=== PATIENT | male | born 1960 | race Caucasian/White ===

== ENCOUNTER 2017-09-24 13:11 | Emergency (ER) | payer OTHER ==
[2017-09-24 13:25] VITALS: BP 148/84
[2017-09-24] MEDS ORDERED: KETOROLAC TROMETHAMINE 60 MG/2 ML SDV IM ONE (14:29)
[2017-09-24] MEDS ORDERED: METHOCARBAMOL 500 MG TABLET PO ONE (14:29)
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
== END 2017-09-24 16:00 | disposition home or self-care (01) ==
LOC: ER 13:11
DX: S23.3XXA Sprain of ligaments of thoracic spine, initial encounter (principal); S33.5XXA Sprain of ligaments of lumbar spine, initial encounter; S40.811A Abrasion of right upper arm, initial encounter; V49.40XA Driver injured in collision with unspecified motor vehicles in traffic accident, initial encounter; Z91.041 Radiographic dye allergy status; F17.200 Nicotine dependence, unspecified, uncomplicated
CPT/HCPCS: 99283; 96372; 72110; 72070; J1885

== ENCOUNTER 2019-03-22 10:28 | Emergency (ER) | payer SELFPAY ==
[2019-03-22] MEDS ORDERED: NORMAL SALINE 1000 ML 1,000 ML IV ONE ×2 (10:50→13:45)
[2019-03-22] MEDS ORDERED: ONDANSETRON HCL INJ/PF 4 MG/2 ML SDV IV ONE ×2 (10:50→13:45)
--- NOTE | 2019-03-22 10:50 | ER Document Report ---
ED Medical Screen (RME) - General Chief Complaint: Abdominal Pain Stated Complaint: ABDOMINAL PAIN Time Seen by Provider: 03/22/19 10:46 Mode of Arrival: Wheelchair Information source: Patient Notes: 58-year-old male presented to ED for complaint of upper abdominal pain around the middle of his upper abdomen. states he has had them for a couple months but is much worse today. He has been nauseated but no vomiting with no constipation. He denies any fevers. He states he is on Suboxone. He states he smokes 1 cigarette every day or [address] or street drugs. He is alert oriented respirations regular nonlabored. Abdomen soft bowel sounds hypoactive very tender to the upper abdomen to palpation. I have greeted and performed a rapid initial assessment of this patient. A comprehensive ED assessment and evaluation of the patient, analysis of test results and completion of medical decision making process will be conducted by an additional ED providers. TRAVEL OUTSIDE OF THE [place] 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
[2019-03-22 11:32] LABS: ABSOLUTE EOSINOPHILS # (AUTO) 0.2 10^3/uL (0.0-0.6); ABSOLUTE LYMPHOCYTES (AUTO) 0.7 10^3/uL (0.5-4.7); ABSOLUTE MONOCYTES (AUTO) 0.6 10^3/uL (0.1-1.4); ABSOLUTE NEUT (AUTO) 6.5 10^3/uL (1.7-8.2); BASOPHILS % (AUTO) 0.5 % (0-2); EOSINOPHILS % (AUTO) 2.1 % (0-6); HEMATOCRIT 38.1 % (37.9-51.0); HEMOGLOBIN 13.3 g/dL (13.5-17.0); LYMPHOCYTES % (AUTO) 8.5 % (13-45); MEAN CORPUSCULAR HEMOGLOBIN 30.9 pg (27.0-33.4); MEAN CORPUSCULAR VOLUME 88 fl (80-97); MONOCYTES % (AUTO) 7.7 % (3-13); PLATELET COUNT 338 10^3/uL (150-450); RED BLOOD COUNT 4.31 10^6/uL (4.35-5.55); RED CELL DISTRIBUTION WIDTH 14.1 % (11.5-14.0); SEGMENTED NEUTROPHILS % (AUTO) 81.2 % (42-78); TOTAL CELLS COUNTED % (AUTO) 100 %
[2019-03-22 11:50] LABS: ALBUMIN 4.1 g/dL (3.5-5.0); ALKALINE PHOSPHATASE 642 U/L (38-126); ANION GAP 9 (5-19); ASPARTATE AMINO TRANSFERASE 128 U/L (17-59); BILIRUBIN,DIRECT 1.3 mg/dL (0.0-0.4); BILIRUBIN,TOTAL 2.4 mg/dL (0.2-1.3); BLOOD UREA NITROGEN 9 mg/dL (7-20); CALCIUM 9.5 mg/dL (8.4-10.2); CARBON DIOXIDE 27 mmol/L (22-30); CHLORIDE 100 mmol/L (98-107); GLUCOSE 114 mg/dL (75-110); POTASSIUM 3.8 mmol/L (3.6-5.0); TOTAL PROTEIN 7.3 g/dL (6.3-8.2)
[2019-03-22 12:07] LABS: APPEARANCE,URINE CLEAR; BILIRUBIN,URINE NEGATIVE (NEGATIVE); COLOR,URINE YELLOW; GLUCOSE, URINE NEGATIVE (NEGATIVE); KETONES,URINE TRACE mg/dL (NEGATIVE); PROTEIN,URINE NEGATIVE (NEGATIVE); URINE SPECIFIC GRAVITY 1.014
--- NOTE | 2019-03-22 13:03 | ER Document Report ---
ED General - General Chief Complaint: Abdominal Pain Stated Complaint: ABDOMINAL PAIN Time Seen by Provider: 03/22/19 10:46 Mode of Arrival: Wheelchair Notes: 58-year-old male with abdominal pain on Suboxone presents with upper abdominal pain burning "like the acid uncontrollable I need to get rid of it" intermittent for about a month worse today with nausea. Feels dehydrated. Normal stooling every day no constipation or blood, history of cholecystectomy. TRAVEL OUTSIDE OF THE [place] IN LAST 30 DAYS: No - Related Data Allergies/Adverse Reactions: Iodinated Contrast Media [IV Dye, Iodine Containing] Allergy (Intermediate, Verified 03/22/19 10:48) Hives Past Medical History - General Information source: Patient - Social History Smoking Status: Current Every Day Smoker Drug Abuse: Marijuana Family History: Reviewed & Not Pertinent Patient has suicidal ideation: No Patient has homicidal ideation: No - Past Medical History Cardiac Medical History: Denies: Hx Coronary Artery Disease, Hx Hypercholesterolemia, Hx Hypertension Endocrine Medical History: Denies: Hx Diabetes Mellitus Type 2 Renal/ Medical History: Denies: Hx Peritoneal Dialysis Musculoskeletal Medical History: Reports Hx Musculoskeletal Trauma - deg enerative spinal disease resulting from trauma in 1991, DDD, bulging disc L4-5, L5-S1 Skin Medical History: Denies Hx MRSA Traumatic Medical History: Reports: Hx Spine Fracture Infectious Medical History: Denies: Hx MRSA Past Surgical History: Reports: Hx Cholecystectomy, Hx Herniorrhaphy - Immunizations Hx Diphtheria, Pertussis, Tetanus Vaccination: Yes Hx Pneumococcal Vaccination: 02/24/00 Review of Systems - Review of Systems Notes: REVIEW OF SYSTEMS GEN: Denies fever, chills, weight loss ENT: Denies sore throat, nasal discharge, ear pain EYES: Denies blurry vision, eye pain, discharge CV: Denies chest pain, palpitations, edema RESP: Denies cough, shortness of breath, wheezing GI: HPI MSK: Denies joint pain/swelling, edema, SKIN: Denies rash, skin lesions LYMPH: Denies swollen glands/lymph nodes NEURO: Denies headache, focal weakness or numbness, dizziness PSYCH: Denies depression, suicidal or homicidal ideation PHYSICAL EXAMINATION General: Moving around the gurney not sitting still Head: Atraumatic, normocephalic ENT: Mouth normal, oropharynx moist, no exudates or tonsillar enlargement Eyes: Conjunctiva normal, pupils equal, lids normal Neck: No JVD, supple, no guarding CVS: Normal rate, regular rhythm, no murmurs Resp: No resp distress, equal and normal breath sounds bilaterally GI: Upper abdominal tenderness epigastric most tender without guarding or distention Ext: No deformities, no edema, normal range of motion in upper and lower ext Back: No CVA or midline TTP Skin: No rash, warm Lymphatic: No lymphadeopathy noted Neuro: Awake, alert. Face symmetric. GCS 15. Physical Exam - Vital signs Vitals: Temp Pulse Resp BP Pulse Ox 97.8 F 72 18 131/72 H 100 03/22/19 10:48 03/22/19 10:48 03/22/19 10:48 03/22/19 10:48 03/22/19 10:48 Course - Re-evaluation Re-evalutation: 03/22/19 14:27 Acute on subacute abdominal pain with significant tenderness, normal vital signs. History of opioid dependence and has some upper abdominal tenderness I am going to order Noncon CT given he is a severe contrast allergy, and check labs Labs are significant for mild elevation in white count and market elevation in alk phos CT shows hypodensity of the pancreatic headI am concerned for a pancreatic head mass biliary tumor or other source of biliary obstruction so I ordered an ultras ound This shows severe biliary dilatation. I discussed him with Dr. Guerra and Dr. Rich, who states that they cannot do ERCP unable to be transferred. Discussed with hospitalist at [facility] who accepted the patient. 03/22/19 21:28 No additional pain medicine given, no signs of sepsis or cholangitis while in our ED. - Vital Signs Vital signs: Temp Pulse Resp BP Pulse Ox 97.8 F 72 18 131/72 H 100 03/22/19 10:48 03/22/19 10:48 03/22/19 10:48 03/22/19 10:48 03/22/19 10:48 - Laboratory Result Diagrams: 03/22/19 11:15 03/22/19 11:15 Laboratory results interpreted by me: 03/22/19 03/22/19 03/22/19 11:15 11:15 11:30 RBC 4.31 L Hgb 13.3 L RDW 14.1 H Lymph % (Auto) 8.5 L Seg Neutrophils % 81.2 H Sodium 136.2 L Glucose 114 H Total Bilirubin 2.4 H Direct Bilirubin 1.3 H AST 128 H Alkaline Phosphatase 642 H Urine Ketones TRACE H Urine Urobilinogen 4.0 H Urine Ascorbic Acid 20 H - Diagnostic Test Radiology reviewed: Image reviewed, Reports reviewed Discharge - Discharge Clinical Impression: Elevated alkaline phosphatase level, Upper abdominal pain Condition: Good Disposition: [facility] Admitting Provider: Deandre (Hospitalist) Unit Admitted: Medical Floor
--- NOTE | 2019-03-22 14:19 | RADIOLOGY REPORT (SQ) ---
EXAM DESCRIPTION: CT ABD/PELVIS NO ORAL OR IV COMPLETED DATE/TIME: 03/22/2019 2:02 pm REASON FOR STUDY: upper abd pain COMPARISON: None. TECHNIQUE: CT scan of the abdomen and pelvis performed without intravenous or oral contrast. Images reviewed with lung, soft tissue, and bone windows. Reconstructed coronal and sagittal MPR images revi ewed. All images stored on PACS. All CT scanners at this facility use dose modulation, iterative reconstruction, and/or weight based d osing when appropriate to reduce radiation dose to as low as reasonably achievable (ALARA). [facility]: Dose Right [facility]: CareDose [facility]: Dose Right [facility]: Teradose 4D [facility]: Smart [employer] RADIATION DOSE: CT Rad equipment meets quality standard of care and radiation dose reduction techniq ues were employed. CTDIvol: 5.5 mGy. DLP: 272 mGy-cm.mGy. LIMITATIONS: None. FINDINGS: LOWER CHEST: No significant findings. No nodules or infiltrates. NON-CONTRASTED LIVER, SPLEEN, ADRENALS: Evaluation limited by lack of IV contrast. No identified sign ificant masses. PANCREAS: Low-density lesion in the expected location of the pancreatic head measuring about 3 cm ad ge 23. This could be normal fluid within gastroduodenal junction or pseudocyst. Difficult to differ entiate without oral and intravenous contrast. GALLBLADDER: Surgically absent. RIGHT KIDNEY AND URETER: No suspicious masses. Assessment limited by lack of IV contrast. No signif icant calcifications. No hydronephrosis or hydroureter. LEFT KIDNEY AND URETER: No suspicious masses. Assessment limited by lack of IV contrast. No signifi cant calcifications. No hydronephrosis or hydroureter. AORTA AND RETROPERITONEUM: No aneurysm. No retroperitoneal masses or adenopathy. BOWEL AND PERITONEAL CAVITY: No obvious masses or inflammatory changes. No free fluid. APPENDIX: Not visualized. PELVIS, BLADDER, AND ABDOMINAL WALL:No abnormal masses. No free fluid. Bladder normal. BONES: No significant findings. OTHER: No other significant finding. IMPRESSION: Possible pseudocyst/pancreatitis. Correlation with serum lipase is recommended. COMMENT: Quality ID # [id number]: Final reports with documentation of one or more dose reduction techniques (e.g., Automated exposure control, adjustment of the mA and/or kV according to patient size, use of iterative reconstruction technique) TECHNICAL DOCUMENTATION: JOB ID: [id number]- All Rights Reserved Reading location - IP/workstation name: [email or web address]
[2019-03-22] MEDS ORDERED: HYDROMORPHONE HCL INJ/PF 2 MG/ML AMPULE IV ONE (14:20)
--- NOTE | 2019-03-22 15:32 | RADIOLOGY REPORT (SQ) ---
EXAM DESCRIPTION: U/S ABDOMEN LIMITED W/O DOP COMPLETED DATE/TIME: 03/22/2019 3:11 pm REASON FOR STUDY: elev alk phos COMPARISON: None. TECHNIQUE: Dynamic and static grayscale images acquired of the abdomen and recorded on PACS. Additio nal selected color Doppler and spectral images recorded. LIMITATIONS: Limited visualization. Poor acoustical window. Patient motion. FINDINGS: PANCREAS: Limited visualization. no masses seen LIVER: Normal size Echo texture normal. No focal masses. LIVER VASCULATURE: Normal directional flow of the main portal vein and hepatic veins. GALLBLADDER: Surgically absent. ULTRASOUND-DETECTED TRINIDAD'S SIGN: Not applicable. INTRAHEPATIC DUCTS AND COMMON DUCT: Dilated intrahepatic ducts. Common bile duct 24 mm. There is a 15 mm hyperchoic lesion in the common bile duct. No definite shadowing. INFERIOR VENA CAVA: Obscured. AORTA: No aneurysm. RIGHT KIDNEY: Normal size. 11 mm cyst. No solid or suspicious masses. No hydronephrosis. No calcifications. PERITONEAL AND RIGHT PLEURAL SPACE: No ascites or effusions. OTHER: No other significant findings. IMPRESSION: Biliary dilatation. Common bile duct mass versus partially calcified stone. TECHNICAL DOCUMENTATION: JOB ID: [id number] [employer]- All Rights Reserved Reading location - IP/workstation name: [email or web address]
[2019-03-22] MEDS: HYDROMORPHONE HCL INJ/PF 2 MG/ML AMPULE IV PRN (16:46)
--- NOTE | 2019-03-22 17:08 | Progress Note ---
Provider Note Provider Note: have spoken to both ED physician and Dr Carrera do not perform ERCP either consult Dr Tinajero if available or patient needs to be sent to a tertiary institution
--- NOTE | 2019-03-23 07:59 | ER Document Report ---
Doctor's Note Notes: 03/23/19 07:58 Patient reassessed this morning. Patient is resting comfortably in the bed with his significant other. He states that he feels better now that he has been able to have some food. He asked for some ice chips. He otherwise denies any significant concerns or problems and says he has no needs that he wants a ddressed currently.
[2019-03-23] MEDS: HYDROMORPHONE HCL INJ/PF 2 MG/ML AMPULE IV PRN ×3 (10:10→23:51)
[2019-03-23] MEDS ORDERED: NORMAL SALINE 1000 ML 1,000 ML IV ONE ×2 (14:31→16:50)
--- NOTE | 2019-03-23 14:33 | ER Document Report ---
Doctor's Note Notes: 03/23/19 14:32 I was asked to come see patient due to a low blood pressure at approximately 2:15 PM. When I walked in the room patient is sitting comfortably in the room with multiple food bags next to him watching TV. He states he does not feel any different than he has all day. He states he has never had a history of low blood pressure before. He states he does not feel lightheaded or dizzy. He states he was able to eat without problem. Patient is not tachycardic or diaphoretic. He has a good radial pulse and he has a good dorsalis pedis pulse. Blood pressure was rechecked manually and it is approximately 90 systolic. I am unsure why his blood pressure is low but I will give a 1 L fluid bolus and reassess the patient.
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
[2019-03-24 00:26] VITALS: BP 135/77
== END 2019-03-24 00:26 | disposition short-term general hospital (02) ==
LOC: ER 10:28 → UNDOADMIN 14:38 → EH 14:38 → ER 03-24 00:26
DX: R10.10 Upper abdominal pain, unspecified (principal); R79.89 Other specified abnormal findings of blood chemistry; R11.0 Nausea; F17.200 Nicotine dependence, unspecified, uncomplicated; Z90.49 Acquired absence of other specified parts of digestive tract
CPT/HCPCS: 99285; 96361; 96374; 36415; 83690; 85025; 80053; 81001; 76705; 74176; J1170 ×2; J2405; J7030 ×2